=== PATIENT | male | born 1965 | race African-American/Black ===

== ENCOUNTER 2018-12-24 14:41 | Outpatient (CLI) | payer BC ==
--- NOTE | 2018-12-24 16:09 | RAD ---
RIGHT SHOULDER THREE VIEWS: HISTORY: Right shoulder pain. COMPARISON: None. FINDINGS: Acromioclavicular and coracoclavicular distance is maintained. Glenohumeral joint space is preserved . No fracture or dislocation. The visualized right ribs are unremarkable. IMPRESSION: No fracture or dislocation. POS: [facility]
== END 2018-12-24 14:42 | disposition home or self-care (01) ==
LOC: BICRAD 14:41
PROVIDERS: ATTEND Family Medicine
DX: M25.511 Pain in right shoulder (principal)

== ENCOUNTER 2019-01-21 15:03 | Outpatient (CLI) | payer BC ==
--- NOTE | 2019-01-21 17:25 | MRI ---
MRI RIGHT SHOULDER WITHOUT CONTRAST: Date: 01/21/19 HISTORY: M75.41 impingement syndrome of right shoulder. COMPARISON: Shoulder radiographs dated 12/24/18. FINDINGS: Biceps Tendon: There is interstitial tearing of the interarticular portion of the biceps tendon which is moderately tendinotic. Labrum: There appears to be a prior anterior labral repair with an anchor in the anterior glenoid. There is t earing throughout the superior labrum anterior and posterior to the biceps tendon insertion. There is a full thickness tear of the posterior 1/2 fibers of the supraspinatus tendon from the footp rint with a 7 mm gap. The anterior inserting fibers are markedly tendinotic. There is also marked ten dinosis of the infraspinatus tendon with undersurface partial tearing, approximately 30-40% from the footprint. The supraspinatus tendon tear measures approximately 8.0 mm in AP dimension. Bones: Type II acromion. Advanced degenerative disease acromioclavicular joint. There is extension of joint fluid from the acromioclavicular joint craniad through a tear of the superior acromioclavicular ligam ent with a ganglion pseudocyst formation. Muscles: There is no significant atrophy of the supraspinatus muscle or the infraspinatus muscle. There is william tendinous cyst formation of the infraspinatus tendon. IMPRESSION: 1. Extensive tearing of the superior labrum anterior and posterior to the biceps labral anchor. 2. There is a full thickness tear of the supraspinatus tendon from the mid fibers to the posterior f ibers with markedly tendinotic anterior fibers. The torn fibers are torn from the footprint with a 7 mm gap with the tear measuring 7-8 mm in AP dimension with undersurface partial tearing of the infras pinatus tendon. 3. Myotendinous cyst with delamination of the infraspinatus tendon. 4. Marked degenerative changes of the acromioclavicular joint with ganglion pseudocyst formation ext ending craniad to the superficial soft tissues through a defect of the superior acromioclavicular lig ament. 5. No significant muscle atrophy. POS: [facility]
== END 2019-01-21 15:04 | disposition home or self-care (01) ==
LOC: SCSMRI 15:03
PROVIDERS: ATTEND Orthopaedic Surgery
DX: M75.41 Impingement syndrome of right shoulder (principal); S43.401A Unspecified sprain of right shoulder joint, initial encounter; M75.101 Unspecified rotator cuff tear or rupture of right shoulder, not specified as traumatic; M67.813 Other specified disorders of tendon, right shoulder; M67.411 Ganglion, right shoulder; M19.011 Primary osteoarthritis, right shoulder

== ENCOUNTER 2019-02-19 06:53 | Outpatient (CLI) | payer BC ==
[2019-02-19 12:37] LABS: #Basophils 0.1 thou/uL (0.0-0.2); #Eosinphils 0.4 thou/uL (0.0-0.7); #Monocytes 0.6 thou/uL (0.11-0.59); #Neutrophils 2.7 thou/uL (1.40-6.50); %Basophils 1.6 % (0.0-1.0); %Eosinophils 5.2 % (0.0-10.0); %Lymphocytes 44.4 % (21.0-51.0); %Monocytes 8.8 % (0.0-10.0); %Neutrophils 40.1 % (42.0-75.0); Hemoglobin 14.4 g/dL (14.0-18.0); Mean Corpuscular HGB CONC 34.6 g/dL (32.0-36.0); Mean Corpuscular Hemoglobin 32.4 pg (27.0-31.0); Mean Corpuscular Volume 93.6 fL (78.0-98.0); Mean Platelet Volume 8.1 fL (7.4-10.4); Platelet Count 280 thou/uL (130-400); RBC Distribution Width 11.4 % (11.5-14.5); Red Blood Cell (RBC) Count 4.44 mill/uL (4.70-6.10); White Blood Cell (WBC) Count 6.8 thou/uL (4.8-10.8)
--- NOTE | 2019-02-19 21:25 | EKG ---
Test Reason : Blood Pressure : / mmHG Vent. Rate : 057 BPM Atrial Rate : 057 BPM P-R Int : 160 ms QRS Dur : 100 ms QT Int : 428 ms P-R-T Axes : 039 078 017 degrees QTc Int : 416 ms Sinus bradycardia Otherwise normal ECG No previous ECGs available Confirmed by LILI LYONS, DR. Choudhary ([id number]) on 02/19/2019 9:25:18 PM Referred By: HODA Confirmed By:DR. Funmi PEARSON MD
== END 2019-02-19 06:54 | disposition home or self-care (01) ==
LOC: LABBT 06:53
PROVIDERS: ATTEND Orthopaedic Surgery
DX: Z01.818 Encounter for other preprocedural examination (principal); M75.101 Unspecified rotator cuff tear or rupture of right shoulder, not specified as traumatic
CPT/HCPCS: 85025; 93005; 93010

== ENCOUNTER 2019-02-21 05:44 | Day surgery (SDC) | payer BC ==
[2019-02-19 11:19] VITALS: BMI 29.0
[2019-02-21] MEDS ORDERED: Fentanyl 100 MCG/2 ML VIAL ONE ×2 (05:55→06:26)
[2019-02-21] MEDS ORDERED: Midazolam HCl 2 mg/2 ml Vial ONE (06:26)
[2019-02-21] MEDS ORDERED: Clindamycin/D5W 600 mg/50 ml Premix Bag ONE (06:41)
[2019-02-21] MEDS ORDERED: Bupivacaine/Epinephrine 0.25% 30 ML VIAL ONE (07:21)
[2019-02-21] MEDS ORDERED: Ondansetron PF 4 MG/2 ML Vial IVP PRN (07:22)
[2019-02-21] MEDS ORDERED: HYDROcodone/Acetaminophen 10/325 mg Tablet PO PRN ×2 (07:22)
[2019-02-21] MEDS ORDERED: traMADol HCl 50 MG TAB PO PRN ×2 (07:22)
[2019-02-21] MEDS ORDERED: Zolpidem Tartrate 5 MG TAB PO PRN (07:22)
[2019-02-21] MEDS ORDERED: Ropivacaine 0.2% 550 ML 550 ML NERVE BLCK SCH (07:22)
[2019-02-21] MEDS ORDERED: Promethazine HCl 25 MG/ML VIAL IM PRN (07:22)
[2019-02-21] MEDS ORDERED: Fentanyl 100 MCG/2 ML VIAL IV PRN (07:23)
[2019-02-21] MEDS ORDERED: Ropivacaine 0.2% HCl/PF (40 MG/20 ML VIAL) ONE (11:46)
[2019-02-21] MEDS ORDERED: Ropivacaine 0.5% HCl/PF (150 MG/30 ML VIAL) ONE (11:46)
[2019-02-21] MEDS ORDERED: PHENYLEPHRINE-NS 100 MCG/ML 10 ML SYRINGE ONE (12:19)
[2019-02-21] MEDS ORDERED: Dexamethasone 20 MG/5 ML VIAL ONE (12:19)
[2019-02-21] MEDS ORDERED: Rocuronium Bromide 10 MG/ML (10ML VIAL) ONE (12:19)
[2019-02-21] MEDS ORDERED: Ondansetron PF 4 MG/2 ML Vial ONE (12:19)
[2019-02-21] MEDS ORDERED: Lidocaine 1% PF 5 ML VIAL ONE (12:19)
[2019-02-21] MEDS ORDERED: PROPOFOL 200 MG/20 ML VIAL ONE (12:19)
[2019-02-21] MEDS ORDERED: Glycopyrrolate 0.2 MG/ML 5 ML SYRINGE ONE (12:19)
--- NOTE | 2019-02-22 02:00 | OP ---
DATE OF PROCEDURE: 02/21/2019 PREOPERATIVE DIAGNOSIS: Left full-thickness rotator cuff tear. POSTOPERATIVE DIAGNOSES: 1. Left full-thickness rotator cuff tear. 2. Previous anterior labral Bankart repair with failed repair and exposed suture. 3. History of decompression. PROCEDURES PERFORMED: 1. Right arthroscopic rotator cuff repair. 2. Right limited debridement, removal of anterior Bankart anchor. CORPORATE REAL ESTATE SPECIALIST: None. ANESTHESIA: The patient received general intubation, Interscalene block ESTIMATED BLOOD LOSS: 30 mL. TOURNIQUET TIME: None. IMPLANTS: A 5.5 corkscrew, 4.75 SwiveLock. ANTIBIOTICS: Clindamycin 600. COMPLICATIONS: None. INDICATION FOR PROCEDURE: Mr. Lange is a 53-year-old male who presented to me with right shoulder pain. The patient had what he describes as a rotator cuff surgery 4 years ago. The patient was seen by Dr. Farley. 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 He smokes. I discussed with the patient the patient's arthroscopic evaluation of the rotator cuff tear. Discussed risks, benefits of revision. I discussed the need for further surgery. I discussed the potential loss of range of motion, stiffness, need for further surgeries, damage to vital structures, loss of life or limb. The patient understood the risks and benefits and elected to proceed. PROCEDURE NOTE: Time-out was performed designating the patient's right upper extremity as the operative site based on site, consent and marking. After time- out, the patient's right upper extremity was prepped and draped in beach chair position. A posterior working portal placed looked intra-articularly. Upon visualization intra-articularly, I saw the anchor from a previous Bankart repair which was performed with a single anchor that had no attachment. The anchor was focused toward the glenoid as well as the humeral head. Therefore, I elected to excise it. I cut and removed the anchor in its entirety and did not plan for secondary repair as this patient's issue was his rotator cuff. I visualized the biceps and its undersurface had fraying in the superior labrum, but had a good overall root attachment, saw no anterior changes on the subscap. No full-thickness, cartilage defects, or loose bodies noted. I then moved subacromially. He had obvious previous decompression. There was a scar plane, but then I found the patient's full-thickness rotator cuff tear which I debrided a footprint, placed a 5.5 corkscrew into position, placed 4 sutures horizontal mattress fashion, sewed those down and placed them in a double row transosseous equivalent, provided with a 4.75 SwiveLock. I used one of the limbs of this to help with little dog-ear to sew the dog-ear down. I felt like we had good overall apposition of the tendon to the bone. I liked the repair. I then washed , cut my final sutures, took final pictures, washed and closed with 3-0 nylon. The patient will be placed in a sling; elbow, wrist, and hand motion for 2 weeks. We will see him back. We will begin passive range of motion. Job ID: [id number] [facility]
== END 2019-02-21 10:50 | disposition home or self-care (01) ==
LOC: SDC 05:44
PROVIDERS: ATTEND Orthopaedic Surgery
PROC: 0LQ14ZZ Repair Right Shoulder Tendon, Percutaneous Endoscopic Approach (ICD-10-PCS; principal; 2019-02-21)
PROC: 0RHJ44Z Insertion of Internal Fixation Device into Right Shoulder Joint, Percutaneous Endoscopic Approach (ICD-10-PCS; principal; 2019-02-21)
PROC: 3E0T3BZ Introduction of Anesthetic Agent into Peripheral Nerves and Plexi, Percutaneous Approach (ICD-10-PCS; principal; 2019-02-21)
DX: M75.121 Complete rotator cuff tear or rupture of right shoulder, not specified as traumatic (principal); S46.111A Strain of muscle, fascia and tendon of long head of biceps, right arm, initial encounter; G89.18 Other acute postprocedural pain; E11.9 Type 2 diabetes mellitus without complications; F17.200 Nicotine dependence, unspecified, uncomplicated; I10 Essential (primary) hypertension; E78.2 Mixed hyperlipidemia; F41.1 Generalized anxiety disorder; Z79.82 Long term (current) use of aspirin; Z79.84 Long term (current) use of oral hypoglycemic drugs; Z79.1 Long term (current) use of non-steroidal anti-inflammatories (NSAID); Z79.899 Other long term (current) drug therapy; Z88.0 Allergy status to penicillin; Z98.890 Other specified postprocedural states
CPT/HCPCS: A4306; C1713; J1100; J2001; J2250; J2405; J2704; J2795; J3010; J3490

== ENCOUNTER 2020-12-29 18:00 | Outpatient (CLI) | payer BC | END 2020-12-29 18:01 | disposition home or self-care (01) | LOC: SLEEPLAB 18:00 | PROVIDERS: ATTEND Nurse Practitioner Family | DX: G47.33 Obstructive sleep apnea (adult) (pediatric) (principal); R53.83 Other fatigue; R06.83 Snoring; K21.9 Gastro-esophageal reflux disease without esophagitis; F41.9 Anxiety disorder, unspecified; E11.9 Type 2 diabetes mellitus without complications; I10 Essential (primary) hypertension; G47.00 Insomnia, unspecified | CPT/HCPCS: 95806 ==

== ENCOUNTER 2022-09-15 14:39 | Outpatient (CLI) | payer BC | END 2022-09-15 14:40 | disposition home or self-care (01) | LOC: SCSMRI 14:39 | PROVIDERS: ATTEND Orthopaedic Surgery | DX: M75.102 Unspecified rotator cuff tear or rupture of left shoulder, not specified as traumatic (principal) ==

== ENCOUNTER 2022-10-27 12:58 | Outpatient (CLI) | payer BC | END 2022-10-27 12:59 | disposition home or self-care (01) | LOC: RAD 12:58 | PROVIDERS: ATTEND Nurse Practitioner Family | DX: M54.50 Low back pain, unspecified (principal); M47.816 Spondylosis without myelopathy or radiculopathy, lumbar region | CPT/HCPCS: 72100 ==

== ENCOUNTER 2022-11-30 06:56 | Outpatient (CLI) | payer BC | END 2022-11-30 06:57 | disposition home or self-care (01) | LOC: BICULT 06:56 | PROVIDERS: ATTEND Nurse Practitioner Family | DX: R10.84 Generalized abdominal pain (principal); R10.2 Pelvic and perineal pain; N28.1 Cyst of kidney, acquired; K76.0 Fatty (change of) liver, not elsewhere classified | CPT/HCPCS: 76700; 76857 ==

== ENCOUNTER 2023-11-07 14:08 | Outpatient (CLI) | payer BC | END 2023-11-07 14:09 | disposition home or self-care (01) | LOC: SCSMRI 14:08 | PROVIDERS: ATTEND Neurological Surgery | DX: M54.2 Cervicalgia (principal); M50.323 Other cervical disc degeneration at C6-C7 level; M50.322 Other cervical disc degeneration at C5-C6 level; M50.321 Other cervical disc degeneration at C4-C5 level | CPT/HCPCS: 72141 ==

== ENCOUNTER 2023-12-15 13:00 | Outpatient (CLI) | payer BC | END 2023-12-15 13:01 | disposition home or self-care (01) | LOC: SCSRAD 13:00 | PROVIDERS: ATTEND Nurse Practitioner Family | DX: M54.2 Cervicalgia (principal); M47.812 Spondylosis without myelopathy or radiculopathy, cervical region | CPT/HCPCS: 72050 ==